=== PATIENT | female | born 1970 | race Caucasian/White ===

== ENCOUNTER 2019-12-24 13:21 | Emergency (ER) | payer BC, SELFPAY ==
--- NOTE | ~2019-12-24 | US_ITS ---
EXAMINATION: US right upper quadrant DATE: 12/24/2019 14:36 INDICATION: Right upper quadrant and epigastric abdominal pain. TECHNIQUE: Multiple grayscale and Doppler ultrasound images of the abdomen were obtained. COMPARISON: None FINDINGS: The visualized portions of the head and body of the pancreas are normal. The liver is yamileth l without focal lesion. There is normal flow in main portal vein. The gallbladder is normal in size. No gallstones or gallbladder wall thickening. There was no sonographic Bhatti sign. The common duct i s normal and measures 5 mm. IMPRESSION: 1. Normal right upper quadrant ultrasound. Reviewed, dictated and finalized at location A.
--- NOTE | ~2019-12-24 | CT_ITS ---
EXAMINATION: CT abdomen pelvis w con EXAM DATE: 12/24/2019 15:26 INDICATION: Epigastric pain. TECHNIQUE: Spiral CT of the abdomen and pelvis was performed following intravenous injection of 100 m L Omnipaque 350. Axial, coronal and sagittal images were reviewed. The dose-length product (DLP) fo r this examination was 751.35 mGy-cm. The exposure was tailored according to patient size (auto mA e xposure control), and iterative reconstruction (ASIR) was used as additional dose reduction technique . There is no prior study for comparison. FINDINGS: The liver, spleen, adrenal glands and pancreas are unremarkable. Gallbladder is unremarkab le. No biliary obstruction. Portal and splenic veins are patent. Kidneys enhance symmetrically. T here is no hydronephrosis. The uterus is unremarkable. The bladder is unremarkable. There is no retroperitoneal or pelvic lymphadenopathy. The appendix is not positively visualized. There is no pericecal inflammatory change to suggest appe ndicitis. The stomach and small bowel are unremarkable. There is expected amount of colonic stool. No free intraperitoneal gas. The heart is normal in size. There are no pericardial or pleural e ffusions. The lung bases are unremarkable. The bones are unremarkable. IMPRESSION: 1. No acute intra-abdominal findings. Reviewed, dictated and finalized at location B.
[2019-12-24 13:41] VITALS: BP 157/98; PULSE 77; RESP 18; TEMP 37.1; O2SAT 99
--- NOTE | 2019-12-24 13:46 | PC.NURSE ---
Pt to ED with complaints of intermittent upper abdominal pain for several months. pt denies nausea, vomiting, diarrhea, fevers, or symptoms.
--- NOTE | 2019-12-24 13:48 | PC.NURSE ---
Dr. Ferrer at bedside for pt assessment.
[2019-12-24] MEDS: MORPHINE SULFATE (*CRX) 4 MG/ML INJ IV PUSH (14:12)
[2019-12-24 14:16] LABS: Basophils Percent Auto 0.2 % (0.2-1.2); Eosinophils Absolute Auto 0.1 K/mm3 (0-0.3); Eosinophils Percent Auto 0.5 % (0-4.4); Hematocrit 43.2 % (37.0-47.0); Hemoglobin 14.7 g/dL (12.0-15.0); Immature Granulocyte Absolute 0.05 K/mm3 (0.00-0.031); Immature Granulocyte Percent A 0.5 % (0-0.5); Lymphocytes Absolute Auto 1.75 K/mm3 (0.9-3.2); Mean Corpuscular Volume 94.1 fl (80-100); Mean Platelet Volume 10.1 fl (7.4-10.4); Monocytes Absolute Auto 0.5 K/mm3 (0.1-0.6); Monocytes Percent Auto 5.3 % (2.6-8.5); Neutrophils Absolute Auto 6.9 K/mm3 (1.3-6.7); Neutrophils Percent Auto 74.5 % (45.5-73.1); Platelet Count Result 259 k/mm3 (150-375); Red Blood Count 4.59 M/mm3 (4.2-5.4); Red Cell Distribution Width 11.9 % (11.5-14.5); White Blood Count 9.2 K/mm3 (4.5-10.0)
--- NOTE | 2019-12-24 14:23 | PC.NURSE ---
Pt to radiology.
[2019-12-24 14:29] LABS: Alanine Aminotransferase 12 U/L (4-35); Albumin Level 4.5 g/dL (3.5-5.1); Alkaline Phosphatase 66 U/L (38-126); Anion Gap 7 mmol/L (8-16); Aspartate Amino Transferase 24 U/L (14-36); Bilirubin,Total 0.5 mg/dL (0.2-1.3); Blood Urea Nitrogen 12 mg/dL (7-17); Calcium 9.2 mg/dL (8.4-10.2); Carbon Dioxide 25 mmol/L (22-30); Chloride 104 mmol/L (98-107); Estimated CRCL calculation 112 ml/min; Estimated Glomerular Filt Rate > 60; Glucose 84 mg/dL (65-105); Lipase 32 U/L (23-300); Potassium 3.6 mmol/L (3.4-5.0); Sodium 136 mmol/L (137-145)
[2019-12-24 14:46] LABS: Add Urine Microscopic? YES; Appearance Urine Clear (Clear); Bacteria Urine Trace /hpf; Bilirubin Urine Negative (Negative); Blood Urine 1+ (Negative); Color Urine Yellow (Yellow); Glucose Urine UA Negative (Negative); Ketones Urine 1+ mg/dL (Negative); Leukocyte Esterase Ur Negative LEU/UL (Negative); Mucus Urine Rare /lpf; Nitrate Urine Negative (Negative); Protein Urine Negative (Negative); Specific Grav Ur 1.021 (1.001-1.035); Squamous Epithelial Cell Urine Many /hpf (Few); Urobilinogen Urine Negative mg/dL (<2.0); WBC Urine 0-3 /hpf
--- NOTE | 2019-12-24 15:39 | PC.NURSE ---
Pt resting on stretcher. Family at bedside. Call light within reach.
--- NOTE | 2019-12-24 16:22 | PC.NURSE ---
ERP at bedside to discuss results with pt.
--- NOTE | 2019-12-24 16:33 | ED.ABDPAIN ---
HPI - Abdominal Pain General Chief Complaint: Abdominal Pain Stated Complaint: abd pain Time Seen by Provider: 12/24/19 13:47 History of Present Illness HPI narrative: Patient is a 49-year-old female who presents ER with upper abdominal pain. Sharp and radiates across upper abdomen. It is intermittent in nature. Ongoing for last few months. 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 Occasionally worsened when eating [place] food. Pain will last for variable amounts of time. No known gallstones. No urinary symptoms. Without diarrhea. Related Data Allergies Allergy/AdvReac Type Severity Reaction Status Date / Time Penicillins Allergy Unknown Verified 08/23/16 08:28 [place] Allergy Unknown Uncoded 12/29/04 11:50 Review of Systems Review of Systems: All systems reviewed & are unremarkable except as noted in HPI and below Constitutional: Constitutional: Denies chills, Denies fever(s) and Denies weakness Cardiovascular: Cardiovascular: Denies chest pain and Denies radiating jaw, neck or arm pain Gastrointestinal: Gastrointestinal: Reports abdominal pain, Denies diarrhea, Denies nausea and Denies vomiting Genitourinary: Genitourinary: Denies nocturia and Denies dysuria PMF Past Medical History Medical History (Updated 12/24/19 @ 16:37 by Mat Josue MD) Healthy female adult Surgical History Surgical History (Updated 12/24/19 @ 16:34 by Mat Josue MD) History of appendectomy Social History Social History Smoking status: Never smoker Alcohol intake: current Exam Narrative: Exam Narrative: GENERAL: Well-appearing, well-nourished, and in no acute distress. HEAD: Normocephalic, atraumatic. CHEST: Clear to auscultation. No respiratory distress. HEART: Regular rate and rhythm. Normal peripheral pulses. ABDOMEN: Soft, nontender, nondistended. EXTREMITIES: Normal range of motion. No edema. SKIN: Warm, dry, no rash. NEURO: Alert and oriented x3. PSYCH: Normal mood and affect. Course Course Emergency Course: Unremarkable evaluation. Informed of results. Recommend outpatient HIDA scan as patient may have gallbladder dysfunction. Has follow-up with PCP in a little over a month. Recommend contacting to see if she can get a visit scheduled sooner. Vital Signs Vital signs: Vital Signs Temperature 98.8 F 12/24/19 13:41 Pulse Rate 77 12/24/19 13:41 Respiratory Rate 18 12/24/19 13:41 Blood Pressure 157/98 H 12/24/19 13:41 Pulse Oximetry 99 12/24/19 13:41 Temperature 98.8 F 12/24/19 13:41 Pulse Rate 77 12/24/19 13:41 Respiratory Rate 18 12/24/19 13:41 Blood Pressure 157/98 H 12/24/19 13:41 Pulse Oximetry 99 12/24/19 13:41 MDM - Abdominal Pain Lab Data Result diagrams: 12/24/19 13:59 12/24/19 13:59 Labs: Lab Results 12/24/19 12/24/19 12/24/19 Range/Units 13:59 13:59 14:20 WBC 9.2 (4.5-10.0) K/mm3 RBC 4.59 (4.2-5.4) M/mm3 Hgb 14.7 (12.0-15.0) g/dL Hct 43.2 (37.0-47.0) % MCV 94.1 (80-100) fl MCH 32.0 (26-34) pg MCHC 34.0 (32-36) g/dl RDW 11.9 (11.5-14.5) % Plt Count 259 (150-375) k/mm3 MPV 10.1 (7.4-10.4) fl Immature Gran % (Auto) 0.5 (0-0.5) % Neut % (Auto) 74.5 H (45.5-73.1) % Lymph % (Auto) 19.0 (18.3-44.2) % [place] % (Auto) 5.3 (2.6-8.5) % Eos % (Auto) 0.5 (0-4.4) % Baso % (Auto) 0.2 (0.2-1.2) % Lymph # (Auto) 1.75 (0.9-3.2) K/mm3 [place] # (Auto) 0.5 (0.1-0.6) K/mm3 Eos # (Auto) 0.1 (0-0.3) K/mm3 Baso # (Auto) 0.0 (0.0-0.1) K/mm3 Abs Immat Gran (auto) 0.05 H (0.00-0.031) K/mm3 Absolute Neuts (auto) 6.9 H (1.3-6.7) K/mm3 Absolute Nucleated RBC 0.0 (0.0-0.012) K/mm3 Nucleated RBC % 0.0 (0.0-0.2) % Sodium 136 L (137-145) mmol/L Potassium 3.6 (3.4-5.0) mmol/L Chloride 104 (98-107) mmol/L Carbon Dioxide 25 (22-30) mmol/L Anion Gap 7
[2019-12-24 16:51] VITALS: BP 121/79; PULSE 88; RESP 15; O2SAT 99
== END 2019-12-24 17:00 | disposition home or self-care (01) ==
PROVIDERS: Emergency Provider Emergency Medicine; PCP Family Medicine
DX: R10.13 Epigastric pain (principal)
CPT/HCPCS: 36415; 74177; 76705; 80053; 81001; 81025; 83690; 85025; 96374; 99284; J2270; Q9967

== ENCOUNTER 2020-02-27 01:09 | Outpatient (CLI) | payer BC, SELFPAY ==
[2020-02-27 18:32] LABS: SARS-CoV-2 RNA PCR Negative
== END 2020-02-27 01:10 | disposition home or self-care (01) ==
LOC: ANHCOVIDDT 01:09
PROVIDERS: PCP Family Medicine; Visit Provider Internal Medicine Gastroenterology
DX: Z01.812 Encounter for preprocedural laboratory examination (principal); Z20.828 Contact with and (suspected) exposure to other viral communicable diseases
CPT/HCPCS: 87635; C9803; U0003

== ENCOUNTER 2020-03-02 01:30 | Day surgery (SDC) | payer BC, SELFPAY ==
[2020-02-23 13:40] VITALS: BMI 27.5
[2020-03-02 08:02] VITALS: BP 156/88; PULSE 74; RESP 14; TEMP 36.7; O2SAT 98
[2020-03-02] MEDS: LACTATED RINGERS 1,000 ML 150 ML IV CONT (08:16)
--- NOTE | 2020-03-02 08:34 | P.PNAN_ITS ---
Anes - Initial Pre Proc Eval Procedure: Operation Date: 03/02/20 09:45 Proposed Procedures p Esophagogastroduodenoscopy & Screening Colonoscopy - Jose A Valladares MD Date/Time: 03/02/20 08:34 Surgeon: Jose A Haji MD Pre Op Diagnosis: Abdominal Pain/ Neoplasm Screening Patient Data Age: 49 Gender: F Height: 5 ft 4 in Weight: 83 kg Last Vital Signs Temp 98.1 F 03/02/20 08:02 Pulse 74 03/02/20 08:02 Resp 14 03/02/20 08:02 BP 156/88 H 03/02/20 08:02 Pulse Ox 98 03/02/20 08:02 Allergies Allergy/AdvReac Type Severity Reaction Status Date / Time Penicillins Allergy Mild Hives Verified 03/02/20 08:01 [place] Allergy Intermediate Hives Uncoded 03/02/20 08:01 Home Medications Medication Instructions Recorded Confirmed Type multivitamin 1 tablet PO DAILY 12/29/19 03/02/20 History peg 3350-electrolytes 236 240 ml PO Q10M #4000 ml 01/22/20 Rx gram-22.74 gram-6.74 gram-5.86 gram solution Patient hx anesthesia problems: none Family hx anesthesia problems: none PMFSH Past Medical History Medical History (Updated 01/21/20 @ 14:34 by DIYA Napoles) Encounter for screening colonoscopy Healthy female adult Surgical History Surgical History History of appendectomy Family History Family History Father Hypertension Grandparent Breast cancer Mother COPD (chronic obstructive pulmonary disease) Asthma History of colon resection Social History Social History Smoking status: Never smoker Second hand tobacco smoke exposure: No Alcohol intake: current Drinks per week: 0 Alcohol use details: MAY HAVE 1 OR 2 DRINKS PER MONTH Substance use: never Substance use type: does not use Living arrangements: with family Gender identity (if verbalized by the patient): Female Spiritual care concerns: No Agree to blood products: Yes Anes - Eval Final PreProcedure Day of Procedure 03/02/20 08:34 Patient weight: overweight Heart: regular rate and rhythm Lungs: clear to auscultation Airway: Mallampati scale class II Neurological: alert and oriented Last oral intake: >/= 8 hours ASA classification: II Emergent: no Anesthetic plan: proceed Anesthesia type and monitoring: general GIVS and standard monitoring Informed Consent: The patient's anesthetic plan and its attendant risks and benefits were discussed with the patient/family/POA. Questions were solicited and answers provided to the satisfaction of the patient/family/POA.
--- NOTE | 2020-03-02 09:04 | PM.HPGS ---
History of Present Illness History of Present Illness Consent: Risks, benefits, and alternatives have been discussed and questions answered. Patient agrees to proceed with procedure. Chief complaint: Abdominal Pain/ Neoplasm Screening Narrative: Edilia Monahan is a 49 year old female with intermittent upper abdominal pain and bloating, never had scopes. Review of Systems Constitutional: Constitutional: Denies headache(s) and Denies weakness Eyes: Eyes: Denies blurry vision ENT: Reports Normal hearing present, Denies headache(s) and Denies neck pain Cardiovascular: Cardiovascular: Denies chest pain and Denies dyspnea Respiratory: Respiratory: Denies dyspnea Gastrointestinal: Gastrointestinal: Reports no additional gastrointestinal complaints Genitourinary: Genitourinary: Denies dysuria Musculoskeletal: Musculoskeletal: Denies neck pain Integumentary/Breasts: Skin/Breast: Denies dry skin Neurologic: Reports Normal hearing present, Denies headache(s) and Denies weakness Psychiatric: Psychiatric: Denies anxiety Endocrine: Endocrine: Denies change in body appearance Hematologic/Lymphatic: Hematologic/Lymphatic: Denies easy bleeding Allergic/Immunologic: Allergic/Immunologic: Denies urticaria [facility] Past Medical History Medical History (Updated 01/21/20 @ 14:34 by DIYA Napoles) Encounter for screening colonoscopy Healthy female adult Surgical History Surgical History History of appendectomy Family History Family History Father Hypertension Grandparent Breast cancer Mother COPD (chronic obstructive pulmonary disease) Asthma History of colon resection Social History Social History Smoking status: Never smoker Second hand tobacco smoke exposure: No Alcohol intake: current Drinks per week: 0 Alcohol use details: MAY HAVE 1 OR 2 DRINKS PER MONTH Substance use: never Substance use type: does not use Living arrangements: with family Gender identity (if verbalized by the patient): Female Spiritual care concerns: No Agree to blood products: Yes Meds Home Medications and Allergies Home Medications Medication Instructions Recorded Confirmed Type multivitamin 1 tablet PO DAILY 12/29/19 03/02/20 History peg 3350-electrolytes 236 240 ml PO Q10M #4000 ml 01/22/20 Rx gram-22.74 gram-6.74 gram-5.86 gram solution Allergies Allergy/AdvReac Type Severity Reaction Status Date / Time Penicillins Allergy Mild Hives Verified 03/02/20 08:01 [place] Allergy Intermediate Hives Uncoded 03/02/20 08:01 Vital Signs Vital Signs - 24 hr 03/02/20 08:02 Temperature 98.1 F Pulse Rate 74 Respiratory Rate 14 Blood Pressure 156/88 H Pulse Oximetry 98 Exam Const: General: comfortable and no acute distress HENMT: General nose exam: Normal nares present Eyes: General: appearance normal, both eyes and all related structures Neck: Neck: no JVD Resp: Auscultation: clear to auscultation bilaterally Cardio: Rate: regular rate Rhythm: regular rhythm GI: Inspection: non-distended GI Palp: Yes Soft to palpation Skin: General skin exam: normal color Neuro: General: gait normal Speech: normal speech Extrem: General: normal to inspection Psych: Mental Status: mental status grossly normal Assessment and Plan Assessment and plan (1) Abdominal pain: Qualifiers: Abdominal location: epigastric Qualified Code(s): R10.13 - Epigastric pain Code(s): R10.9 - Unspecified abdominal pain Status: Acute Assessment and Plan: egd with bx (2) Encounter for screening colonoscopy: Code(s): Z12.11 - Encounter for screening for malignant neoplasm of colon Status: Acute Assessment and Plan: proceed with colonoscopy
--- NOTE | 2020-03-02 09:38 | SUR.OPER ---
EGD START 913, END 918 COLONOSCOPY START 923, END 936
[2020-03-02 09:40] VITALS: BP 121/85; PULSE 67; RESP 16; O2SAT 100
[2020-03-02 09:50] VITALS: BP 135/86; PULSE 65; RESP 21; O2SAT 100
[2020-03-02 10:00] VITALS: BP 138/83; PULSE 63; RESP 16; O2SAT 100
== END 2020-03-02 10:25 | disposition home or self-care (01) ==
PROVIDERS: PCP Family Medicine; Visit Provider Internal Medicine Gastroenterology
PROC: 0DJ08ZZ Inspection of Upper Intestinal Tract, Via Natural or Artificial Opening Endoscopic (ICD-10-PCS; CPT 43235; principal; 2020-03-02 09:45)
DX: Z12.11 Encounter for screening for malignant neoplasm of colon (principal); K29.50 Unspecified chronic gastritis without bleeding
CPT/HCPCS: 45378; 43239; 88305; J2704; J7120